=== PATIENT | female | born 1980 | race Caucasian/White ===

== ENCOUNTER 2016-10-09 15:33 | Inpatient (IN) | payer BC, OTHER ==
[2016-10-09] MEDS ORDERED: SODIUM CHLORIDE 1,000 ML IV STA ×2 (16:58→18:57)
[2016-10-09] MEDS ORDERED: morphine CARPU-JECT 2 MG/1 ML DISP.SYRIN IVPUSH ONE (17:05)
--- NOTE | 2016-10-09 17:21 | PDOC ---
History of Present Illness - General Chief Complaint: Pain Stated Complaint: PAIN Time Seen by Provider: 10/09/16 16:23 History Source: Patient Exam Limitations: Language Barrier - History of Present Illness Travel History: No Initial Comments: 10/09/16 16:16 36-year-old female presents to the ED with worsening right upper quadrant pain associated with intermittent nausea. Patient also noted yellowing in her eyes and dark urine today. Patient states last week was seen in [place] emergency department was told she had gallstones and to follow-up with her PCP when she returns home. Patient states been taking Motrin for discomfort but has had no relief in the past day. Patient denies fever, chills, abdominal distention, back pain, or change in bowel pattern. Timing/Duration: reports: getting worse Quality: reports: moderate, cramping, sharpness Abdominal Pain Onset Location: reports: RUQ Pain Radiation: reports: no radiation Activities at Onset: reports: none Aggravating Factors: improves with: None Alleviating Factors: improves with: None Past History - Past Medical History Allergies/Adverse Reactions: Allergies Allergy/AdvReac Type Severity Reaction Status Date / Time No Known Allergies Allergy Verified 10/09/16 15:37 Home Medications: Ambulatory Orders NK [No Known Home Medication] 10/09/16 Asthma: No Cancer: No Cardiac Disorders: No Diabetes: No GI Disorders: Yes (gallstones) HTN: No Seizures: No Thyroid Disease: No - Reproductive History Is Patient Now?: No - Immunization History Immunization Up to Date: No - Psycho/Social/Smoking Cessation Hx Suicidal Ideation: No Smoking History: Never smoked Have you smoked in the past 12 months: No Information on smoking cessation initiated: No Hx Alcohol Use: No Drug/Substance Use Hx: No Substance Use Type: None Hx Substance Use Treatment: No Patient Lives Alone: No Lives with/in: spouse/SO Abd/GI Specific PMHX - Complaint Specific PMHX Gall Bladder Disease: Yes ( gallstones) Review of Systems - Review of Systems Able to Perform ROS?: Yes Constitutional: No: Symptoms Reported HEENTM: No: Symptoms Reported Respiratory: No: Symptoms reported Cardiac (ROS): No: Symptoms Reported ABD/GI: Yes: Nausea, Abdominal cramping : No: Symptoms Reported Musculoskeletal: No: Symptoms Reported Integumentary: Yes: Change in Color Neurological: No: Symptoms reported Endocrine: No: Symptoms Reported Hematologic/Lymphatic: No: Symptoms Reported *Physical Exam - Vital Signs Last Vital Signs Temp Pulse Resp BP Pulse Ox 98.3 F 79 18 126/62 100 10/09/16 15:38 10/09/16 15:38 10/09/16 15:38 10/09/16 15:38 10/09/16 15:38 - Physical Exam General Appearance: Yes: Nourished, Appropriately Dressed. No: Apparent Distress HEENT: positive: EOMI, ERYN, Scleral Icterus (R), Scleral Icterus (L). negative : Pale Conjunctivae Neck: positive: Supple Respiratory/Chest: positive: Lungs Clear, Normal Breath Sounds. negative: Respiratory Distress, Accessory Muscle Use Cardiovascular: positive: Regular Rhythm, Regular Rate. negative: Murmur Gastrointestinal/Abdominal: positive: Soft, Increased Bowel Sounds, Guarding ( right upper quadrant), Tenderness (right upper quadrant positive [place]'s.). negative: Distended Musculoskeletal: negative: CVA Tenderness Extremity: positive: Normal Capillary Refill. negative: Pedal Edema Integumentary: positive: Warm, Jaundice ( mild generalized). negative: Swelling Neurologic: positive: Motor Strength 5/5 (ambulatory) ED Treatment Course - LABORATORY CBC & Chemistry Diagram: 10/09/16 17:30 10/09/16 17:30 - RADIOLOGY Radiology Studies Ordered: Category Date Time Status GALLBLADDER US [US] Stat Ultrasound 10/09/16 17:05 Ordered Medical Decision Making - Medical Decision Making 10/09/16 16:20 Patient with right upper quadrant pain and recent diagnosis of gallstones. Patient concerning for common bile duct obstruction versus pancreatitis versus cholecystitis. Patient ordered for preop labs including ultrasound IV access and pain control. 10/09/16 18:58 Laboratory Tests 10/09/16 10/09/16 13:20 17:30 WBC 6.7 Hgb 14.3 D Hct 42.1 D Neutrophils % 78.1 Monocytes % 6.2 D Urine Protein 1+ H Urine Glucose (UA) Negative Urine Ketones Negative Urine Blood 3+ H Urine Nitrite Negative Urine Urobilinogen 4.0 e.u/dl H Ur Leukocyte Esterase Negative Urine HCG, Qual Pending Ultrasound shows the liver measuring 17.8 cm with small cysts mainly in the left hepatic lobe measuring up to 1.4 cm in diameter. With a focal hypoechoic density measuring 2.3 cm in the right hepatic lobe. The gallbladder is adequately distended with a stone at the level of the neck measuring 1 cm and questionable sludge. There is also small stones the level of the fundus there is mild diffuse thickening in the gallbladder wall measuring 5 mm. Dilated, bowel duct measuring 8.5 mm in diameter. An MRCP is needed for further evaluation and an MRI of the liver to evaluate for mass lesion. Microblog was sent to hospitalist for admission. Ordered for nothing by mouth status and a second bag of IV fluid. Case discussed with Dr. Matthew and admitted to med/surg inpt. *DC/Admit/Observation/Transfer Diagnosis at time of Disposition: Scleral icterus, Gallstones with biliary obstruction, Liver mass, right lobe - Discharge Dispostion Admit: Yes
[2016-10-09 18:01] LABS: URINE APPEARANCE CLEAR; URINE COLOR AMBER; URINE GLUCOSE (UA) NEGATIVE (NEGATIVE); URINE KETONE NEGATIVE (NEGATIVE); URINE LEUK ESTERASE NEGATIVE (NEGATIVE); URINE NITRITE NEGATIVE (NEGATIVE); URINE UROBILINOGEN 4.0 E.U/dl E.U./dl (0.2-1.0)
[2016-10-09 18:01] LABS: BASOPHIL 0.6 % (0-2.0); MEAN CELL VOLUME 85.3 fl (80-96); MEAN PLT VOLUME 8.5 fl (7.5-11.1); NEUTROPHILS 78.1 % (42.8-82.8); PLATELET COUNT 157 K/MM3 (134-434); RDW 13.8 % (11.6-15.6); WHITE BLOOD COUNT 6.7 K/mm3 (4.0-10.0)
[2016-10-09 18:07] LABS: URINE BLOOD 3+ (NEGATIVE); URINE PROTEIN 1+ (NEGATIVE)
[2016-10-09 18:07] LABS: ALBUMIN 4.3 g/dl (3.4-5.0)
[2016-10-09 18:09] LABS: BILIRUBIN,TOTAL 10.7 mg/dL (0.2-1.0); TOT PROT 7.7 g/dl (6.4-8.2)
[2016-10-09] MEDS ORDERED: morphine CARPU-JECT 4 MG/1 ML DISP.SYRIN ONE (18:40)
[2016-10-09 19:02] LABS: CALCIUM 9.3 mg/dL (8.5-10.1); CREATININE 1.1 mg/dL (0.55-1.02)
[2016-10-09 19:02] LABS: URINE MUCUS MODERATE; URINE RBC 168 /hpf (0-3); URINE WBC 5 /hpf (3-5)
--- NOTE | 2016-10-09 19:36 | PN ---
<ImerRogrebernadine - Last Filed: 10/09/16 19:36> Teaching Attending Note Name of Resident: Teresa Shearer ATTENDING PHYSICIAN STATEMENT I saw and evaluated the patient. I reviewed the resident's note and discussed the case with the resident. I agree with the resident's findings and plan as documented. SUBJECTIVE: OBJECTIVE: ASSESSMENT AND PLAN: <Jojo Auguste - Last Filed: 10/09/16 21:06> Teaching Attending Note ATTENDING PHYSICIAN STATEMENT I saw and evaluated the patient. I reviewed the resident's note and discussed the case with the resident. I agree with the resident's findings and plan as documented. SUBJECTIVE: The patient is a 36 yo F with a PMHx of gallstones, who presents with RUQ pain and nausea. OBJECTIVE: Physical Last Vital Signs Temp Pulse Resp BP Pulse Ox 98.3 F 69 16 107/68 98 10/09/16 18:45 10/09/16 18:45 10/09/16 18:45 10/09/16 18:45 10/09/16 18:45 GEN: NAD HEENT: NCAT, PERRL. + Sclera icteric CARD: RRR, S1 S2 RESP: CTAB ABD: + RUQ tenderness on palpation, BWS x4 EXT: - CCE CBCD WBC 6.7 K/mm3 (4.0-10.0) 10/09/16 17:30 RBC 4.94 M/mm3 (3.60-5.2) D 10/09/16 17:30 Hgb 14.3 GM/dL (10.7-15.3) D 10/09/16 17:30 Hct 42.1 % (32.4-45.2) D 10/09/16 17:30 MCV 85.3 fl (80-96) 10/09/16 17:30 MCHC 34.0 g/dl (32.0-36.0) 10/09/16 17:30 RDW 13.8 % (11.6-15.6) D 10/09/16 17:30 Plt Count 157 K/MM3 (134-434) D 10/09/16 17:30 MPV 8.5 fl (7.5-11.1) 10/09/16 17:30 CMP Sodium 140 mmol/L (136-145) 10/09/16 17:30 Potassium 4.2 mmol/L (3.5-5.1) 10/09/16 17:30 Chloride 102 mmol/L (98-107) 10/09/16 17:30 Carbon Dioxide 26 mmol/L (21-32) D 10/09/16 17:30 Anion Gap 12 (8-16) 10/09/16 17:30 BUN 8 mg/dL (7-18) 10/09/16 17:30 Creatinine 1.1 mg/dL (0.55-1.02) H D 10/09/16 17:30 Creat Clearance w eGFR 55.89 (>60) 10/09/16 17:30 Calcium 9.3 mg/dL (8.5-10.1) 10/09/16 17:30 Total Bilirubin 10.7 mg/dL (0.2-1.0) H 10/09/16 17:30 AST 348 U/L (15-37) H 10/09/16 17:30 ALT 465 U/L (12-78) H 10/09/16 17:30 Alkaline Phosphatase 183 U/L (45-117) H 10/09/16 17:30 Total Protein 7.7 g/dl (6.4-8.2) 10/09/16 17:30 Albumin 4.3 g/dl (3.4-5.0) 10/09/16 17:30 Imaging: US Abdomen- Limited Impression: Multiple small gallstones mainly at the level of the fundus with suggestion of a sludge, 1 cm stone at the level of the neck and mild diffuse thickening of the gallbladder wall. No pericholecystic free fluid is seen. Cannot rule out acute cholecystitis. Dilated common bile duct measuring 8.5 mm for which further evaluation with MRCP is needed. Borderline hepatomegaly with heterogeneous echotexture, a few small cysts measuring up to 1.2 cm and a 2.3 cm focal hypoechoic density in the right hepatic lobe for which further evaluation with contrast enhanced MRI of the liver is recommended to evaluate for a mass lesion. ASSESSMENT AND PLAN: The patient is a 36 yo F with a PMHx of gallstones who present with RUQ abdominal pain who was found to have acute cholecystitis and transaminitis. 1.) Acute colli with possible CBD stone - MRCP in the AM - GI consult - Surgery consult - NPO - IVF - Zosyn-- breast feeding compatible - Coags type and screen 2.) Acute Renal Failure - IVF - If no improvement check electrolytes 3.) Hyperbilirubinemia -Check direct bilirubin -Trend 4.) Liver cyst - Contrast enhanced MRI when able 5.) DVT PPX - Low risk - Ambulate Admit to Med Surg Documentation prepared by Jojo Auguste, acting as family practice medical doctor for Heike Willams MD
[2016-10-09] MEDS ORDERED: PIPERACILLIN/TAZOB 3.375 GM 50 ML IVPB ONE (20:38)
[2016-10-09] MEDS ORDERED: SODIUM CHLORIDE 1,000 ML IV SCH (20:45)
[2016-10-09 20:54] VITALS: BMI 30.2
--- NOTE | 2016-10-09 20:58 | HP ---
CHIEF COMPLAINT: abdominal pain PCP: Not on staff HISTORY OF PRESENT ILLNESS: Patient is a 36 year old female with no PMHx who presents complaining of constant sharp right upper quadrant abdominal pain that initially started four days ago when she was on vacation in [place], [place] and went to a hospital there. She was told she had gallstones and was discharged with pain medications. Patient left her trip early so she can be evaluated here. The pain radiates to the back and is worse when she takes a deep breath in with a severity of 10/10 associated with nonbilious non bloody vomiting. Patient also reports having yellow eyes and dark urine, which began around the same time as the abdominal pain. Otherwise, patient denies fever, chills, diarrhea, chest pain, shortness of breath, palpitations, dizziness, headaches. ER course was notable for: (1) U/S (2) Morphine 4mg IV (3) 2L IV Normal Saline Recent Travel: [place], [place] three days ago PAST MEDICAL HISTORY: Denies PAST SURGICAL HISTORY: Denies Social History: Smoking: Denies Alcohol: Denies Drugs: Denies Family History: Father- Nephrolithiasis Allergies: No Known Allergies Allergy (Verified 10/09/16 15:37) HOME MEDICATIONS: Medication Instructions Recorded NK [No Known Home Medication] 10/09/16 REVIEW OF SYSTEMS CONSTITUTIONAL: Absent: fever, chills, diaphoresis, generalized weakness, malaise, loss of appetite, weight change HEENT: Absent: rhinorrhea, nasal congestion, throat pain, throat swelling, difficulty swallowing, mouth swelling, ear pain, eye pain, visual changes CARDIOVASCULAR: Absent: chest pain, syncope, palpitations, irregular heart rate, lightheadedness , peripheral edema RESPIRATORY: Absent: cough, shortness of breath, dyspnea with exertion, orthopnea, wheezing, stridor, hemoptysis GASTROINTESTINAL: abdominal pain, abdominal distension, nausea, vomiting Absent: Diarrhea, constipation, melena, hematochezia GENITOURINARY: Absent: dysuria, frequency, urgency, hesitancy, hematuria, flank pain, genital pain MUSCULOSKELETAL: Absent: myalgia, arthralgia, joint swelling, back pain, neck pain SKIN: Absent: rash, itching, pallor HEMATOLOGIC/IMMUNOLOGIC: Absent: easy bleeding, easy bruising, lymphadenopathy, frequent infections ENDOCRINE: Absent: unexplained weight gain, unexplained weight loss, heat intolerance, cold intolerance NEUROLOGIC: Absent: headache, focal weakness or paresthesias, dizziness, unsteady gait, seizure, mental status changes, bladder or bowel incontinence PSYCHIATRIC: Absent: anxiety, depression, suicidal or homicidal ideation, hallucinations. Vital Signs - 24 hr 10/09/16 10/09/16 10/09/16 15:38 18:45 20:43 Temperature 98.3 F 98.3 F 98.7 F Pulse Rate 79 73 Pulse Rate [ 69 Left Radial] Respiratory 18 16 18 Rate Blood Pressure 126/62 127/69 Blood Pressure 107/68 [Right Arm] O2 Sat by Pulse 100 98 Oximetry (%) PHYSICAL EXAMINATION GENERAL: Awake, alert, and fully oriented, in no acute distress. HEENT:PERRL, EOMI, Scleral Icterus, Moist mucous membranes. NECK: Normal range of motion, supple without lymphadenopathy, JVD, or masses. LUNGS: Breath sounds equal, clear to auscultation bilaterally. No wheezes, and no crackles. No accessory muscle use. HEART: Regular rate and rhythm, normal S1 and S2 without murmur, rub or gallop. ABDOMEN: Soft, Tenderness upon palpation of right upper quadrant with (+) guarding, no rebound, no masses. Hyperactive bowel sounds. No hepatomegaly or splenomegaly. EXTREMITIES: No calf tenderness. No peripheral edema. NEUROLOGICAL: No focal deficits. Normal speech. PSYCHIATRIC: Cooperative. Good eye contact. Appropriate mood and affect. SKIN: Warm, dry, normal turgor, no rashes or lesions noted. Laboratory Results - last 24 hr 10/09/16 10/09/16 10/09/16 13:20 17:30 17:30 WBC 6.7 RBC 4.94 D Hgb 14.3 D Hct 42.1 D MCV 85.3 MCHC 34.0 RDW 13.8 D Plt Count 157 D MPV 8.5 Neutrophils % 78.1 Lymphocytes % 14.1 Monocytes % 6.2 D Eosinophils % 1.0 Basophils % 0.6 Sodium 140 Potassium 4.2 Chloride 102 Carbon Dioxide 26 D Anion Gap 12 BUN 8 Creatinine 1.1 H D Creat Clearance w eGFR 55.89 Random Glucose 93 Calcium 9.3 Total Bilirubin 10.7 H AST 348 H ALT 465 H Alkaline Phosphatase 183 H Total Protein 7.7 Albumin 4.3 Total Amylase 61 Lipase 183 Urine Color [place] Urine Appearance Clear Urine pH 5.0 Ur Specific [place] 1.027 Urine Protein 1+ H Urine Glucose (UA) Negative Urine Ketones Negative Urine Blood 3+ H Urine Nitrite Negative Urine Bilirubin 4.0 Urine Urobilinogen 4.0 e.u/dl H Ur Leukocyte Esterase Negative Urine RBC 168 Urine WBC 5 Ur Epithelial Cells Rare Urine Mucus Moderate Urine HCG, Qual Negative US Abdomen- Limited: Multiple small gallstones mainly at the level of the fundus with suggestion of a sludge, 1 cm stone at the level of the neck and mild diffuse thickening of the gallbladder wall. No pericholecystic free fluid is seen. Cannot rule out acute cholecystitis. Dilated common bile duct measuring 8.5 mm for which further evaluation with MRCP is needed. Borderline hepatomegaly with heterogeneous echotexture, a few small cysts measuring up to 1.2 cm and a 2.3 cm focal hypoechoic density in the right hepatic lobe for which further evaluation with contrast enhanced MRI of the liver is recommended to evaluate for a mass lesion. ASSESSMENT/PLAN: Patient is a 36 year old male female with no PMHx who presented for RUQ abdominal pain associated with vomiting and jaundice. Patient was found to have acute cholecystitis and transaminitis. Patient admitted to med//surg for further monitoring and management. Acute Cholecystitis with CBD stone -GI Consult placed -Surgery consult placed -MRCP ordered for the morning -IV Normal Saline @100mls/hr -Zosyn 3.375mg IV -Coagulations ordered -Type and Screen -Morphine 2mg IVP PRN for pain -NPO Transaminitis -Likely from CBD obstruction -GI Consult ordered -Continue to trend LFT's Hyperbilirubinemia -Direct Bilirubin ordered -Continue to trend bilirubin Acute Kidney Injury -Likely volume depletion from vomiting -IV Normal Saline @100mls/hr -Continu to trend BMP. If no improvement, check electrolytes Liver Cyst -Contrast enhanced MRI recommended when possible F/E/N -IV NS @100mls/hr -Electrolytes wnl -NPO Prophylaxis -SCD's for DVT -No GI needed Disposition -Full code -Admitted to Med/Surg. Awaiting surgery evaluation. Visit type - Emergency Visit Emergency Visit: Yes ED Registration Date: 10/09/16 Care time: The patient presented to the Emergency Department on the above date and was hospitalized for further evaluation of their emergent condition. - New Patient This patient is new to me today: Yes Date on this admission: 10/09/16 - Critical Care Critical Care patient: No
--- NOTE | 2016-10-10 00:09 | CONSULT ---
Consult Consult Specialty:: surgery - History of Present Illness Chief Complaint: ruq pain History of Present Illness: pt with RUQ pain since saturday (4-5 days). Initially was diagnosed with gallstones/gallbladder problems in [place] but wanted to be treated at home. Pain is on off. Comes to ER and U/S shows stones, wall thickening and CBD 8.5mm. Her LFTs are increased and Tbili is 10. she has never had jaundice before Saturday and never had these problems. - History Source History Provided By: Patient - Past Medical History ...: No - Past Surgical History Past Surgical History: Yes: None, - Alcohol/Substance Use Hx Alcohol Use: No History of Substance Use: reports: None - Smoking History Smoking history: Never smoked Have you smoked in the past 12 months: No - Social History History of Recent Travel: No Home Medications - Allergies Allergies/Adverse Reactions: Allergies Allergy/AdvReac Type Severity Reaction Status Date / Time No Known Allergies Allergy Verified 10/09/16 15:37 - Home Medications Home Medications: Ambulatory Orders NK [No Known Home Medication] 10/09/16 Family Disease History - Family Disease History Family History: Denies Review of Systems - Review of Systems Constitutional: denies: Chills, Fever Eyes: denies: Blind Spots, Double Vision HENT: denies: Difficult Swallowing, Ear Discharge Neck: denies: Decreased ROM, Lumps Cardiovascular: denies: Chest Pain, Edema Respiratory: denies: Cough, Exercise Intolerance Gastrointestinal: reports: Abdominal Pain. denies: Bloating Genitourinary: denies: Burning, Discharge Musculoskeletal: denies: Crepitus, Decreased ROM Integumentary: reports: Change in Color. denies: Bruising Neurological: denies: Change in LOC, Change in Speech Endocrine: denies: Excessive Sweating, Flushing Hematology/Lymphatic: denies: Easily Bruised, Excessive Bleeding Psychiatric: denies: Altered Sleep Pattern, Anxiety Physical Exam Vital Signs: Vital Signs Temperature 98.7 F 10/09/16 20:43 Pulse Rate 73 10/09/16 20:43 Respiratory Rate 18 10/09/16 20:43 Blood Pressure 127/69 10/09/16 20:43 O2 Sat by Pulse Oximetry (%) 98 10/09/16 20:55 Constitutional: Yes: No Distress, Calm Eyes: Yes: EOM Intact, Other (sclericterus) HENT: Yes: Atraumatic, Normocephalic Neck: Yes: Supple, Trachea Midline Cardiovascular: Yes: Regular Rate and Rhythm Respiratory: Yes: Regular, CTA Bilaterally Gastrointestinal: Yes: Soft, Tenderness (min mild RUQ). No: Distention ...Rectal Exam: Yes: Deferred Renal/: No: CVA Tenderness - Left, CVA Tenderness - Right Breast(s): No: Gynecomastia, Mass Musculoskeletal: No: Joint Stiffness, Joint Swelling Extremities: No: Calf Tenderness, Erythema Integumentary: No: Erythema, Rash Neurological: Yes: Alert, Oriented Psychiatric: Yes: Alert, Oriented Imaging - Results Ultrasound: Report Reviewed Problem List - Problems (1) Gallstones with biliary obstruction Assessment/Plan: needs MRCP to r/o choledocholithasis if + will need ERCP if - will proceed to lap heydi cont npo for now MRCP will hopefully better define liver masses. given pain and acuity of problem I strongly suspect this is gallstone disease and NOT neoplastic. Code(s): K80.21 - CALCULUS OF GALLBLADDER W/O CHOLECYSTITIS WITH OBSTRUCTION (2) Scleral icterus Code(s): R17 - UNSPECIFIED JAUNDICE
--- NOTE | 2016-10-10 00:46 | CON.GI ---
Consult Consult Specialty:: Gastroenterology Referred by:: Dr Mohamud Reason for Consultation:: Jaundice - History of Present Illness Chief Complaint: RUQ colicky pain History of Present Illness: 36W 3 months developed colicky RUQ pain with radiation to the right scapula on 10/07/16. She was evaluated in an ER in [place] and told of gallstones. The pain has persisted and been getting worse. No vomiting or fever. No previous h/o similar pain. Her urine has been justina colored. She denies any h/o liver disease. No IVDA or alcohol abuse. Vaccinated for HBV. Has been tattooed. No FH of liver disease. 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 Place of : [facility] History of Recent Travel: No Home Medications - Allergies Allergies/Adverse Reactions: Allergies Allergy/AdvReac Type Severity Reaction Status Date / Time No Known Allergies Allergy Verified 10/09/16 15:37 - Home Medications Home Medications: Ambulatory Orders NK [No Known Home Medication] 10/09/16 Family Disease History - Family Disease History Family Disease History: Diabetes: Father Review of Systems - Review of Systems Constitutional: reports: No Symptoms Eyes: reports: No Symptoms HENT: reports: No Symptoms Neck: reports: No Symptoms Cardiovascular: reports: No Symptoms Respiratory: reports: No Symptoms Gastrointestinal: reports: Abdominal Pain Genitourinary: reports: No Symptoms Breasts: reports: No Symptoms Reported Musculoskeletal: reports: No Symptoms Integumentary: reports: No Symptoms Neurological: reports: No Symptoms Physical Exam-GI Vital Signs: Vital Signs Temperature 98.7 F 10/09/16 20:43 Pulse Rate 73 10/09/16 20:43 Respiratory Rate 18 10/09/16 20:43 Blood Pressure 127/69 10/09/16 20:43 O2 Sat by Pulse Oximetry (%) 98 10/09/16 20:55 CBC, BMP 10/09/16 17:30 10/09/16 17:30 CBC,CMP WBC 6.7 K/mm3 (4.0-10.0) 10/09/16 17:30 RBC 4.94 M/mm3 (3.60-5.2) D 10/09/16 17:30 Hgb 14.3 GM/dL (10.7-15.3) D 10/09/16 17:30 Hct 42.1 % (32.4-45.2) D 10/09/16 17:30 MCV 85.3 fl (80-96) 10/09/16 17:30 MCHC 34.0 g/dl (32.0-36.0) 10/09/16 17:30 RDW 13.8 % (11.6-15.6) D 10/09/16 17:30 Plt Count 157 K/MM3 (134-434) D 10/09/16 17:30 MPV 8.5 fl (7.5-11.1) 10/09/16 17:30 Neutrophils % 78.1 % (42.8-82.8) 10/09/16 17:30 Lymphocytes % 14.1 % (8-40) 10/09/16 17:30 Monocytes % 6.2 % (3.8-10.2) D 10/09/16 17:30 Eosinophils % 1.0 % (0-4.5) 10/09/16 17:30 Basophils % 0.6 % (0-2.0) 10/09/16 17:30 Sodium 140 mmol/L (136-145) 10/09/16 17:30 Potassium 4.2 mmol/L (3.5-5.1) 10/09/16 17:30 Chloride 102 mmol/L (98-107) 10/09/16 17:30 Carbon Dioxide 26 mmol/L (21-32) D 10/09/16 17:30 Anion Gap 12 (8-16) 10/09/16 17:30 BUN 8 mg/dL (7-18) 10/09/16 17:30 Creatinine 1.1 mg/dL (0.55-1.02) H D 10/09/16 17:30 Creat Clearance w eGFR 55.89 (>60) 10/09/16 17:30 Random Glucose 93 mg/dL (74-106) 10/09/16 17:30 Calcium 9.3 mg/dL (8.5-10.1) 10/09/16 17:30 Total Bilirubin 10.7 mg/dL (0.2-1.0) H 10/09/16 17:30 AST 348 U/L (15-37) H 10/09/16 17:30 ALT 465 U/L (12-78) H 10/09/16 17:30 Alkaline Phosphatase 183 U/L (45-117) H 10/09/16 17:30 Total Protein 7.7 g/dl (6.4-8.2) 10/09/16 17:30 Albumin 4.3 g/dl (3.4-5.0) 10/09/16 17:30 Total Amylase 61 U/L (25-115) 10/09/16 17:30 Lipase 183 U/L (73-393) 10/09/16 17:30 Current Medications Generic Name Dose Route Start Last Admin Trade Name Freq PRN Reason Stop Dose Admin Sodium Chloride 1,000 mls @ 100 mls/hr 10/09/16 20:45 10/09/16 21:03 Normal Saline - IV Not Given ASDIR ASIYA Ampicillin Sodium/Sulbactam 100 mls @ 200 mls/hr 10/10/16 02:00 Sodium 1.5 gm/ Sodium Chloride IVPB Q8H-IV ASIYA Metronidazole 100 mls @ 100 mls/hr 10/10/16 02:00 Flagyl 500mg Premixed Ivpb - IVPB Q8H-IV ASIYA Morphine Sulfate 2 mg 10/09/16 20:35 Morphine Injection - IVPUSH Q4H PRN MODERATE PAIN Constitutional: Yes: Calm Eyes: Yes: Sclera Icterus HENT: Yes: Normocephalic Neck: Yes: Supple Cardiovascular: Yes: Regular Rate and Rhythm Respiratory: Yes: CTA Bilaterally Gastrointestinal Inspection: Yes: Scars (healed Pfannensteil incisions) ...Auscultate: Yes: Hypoactive Bowel Sounds ...Palpate: Yes: Soft, Tenderness (RUQ but no peritoneal signs) ...Rectal Exam: Yes: Deferred Imaging - Results Ultrasound: Image Reviewed (dilated CBD at 8.5mm, gallstones, 2.3cm hypoechoic right lobe density) Problem List - Problems (1) Abdominal pain Code(s): R10.9 - UNSPECIFIED ABDOMINAL PAIN Assessment/Plan I have explained to Rachel that her clinical picture is best explained by stones occluding her common bile duct. A pancreatic, ampullary or cholagiocarcinoma appear unlikely. I have explained that she will likely need an ERCP with sphincterotomy to extract the stones or to pass a stent to relieve the obstruction. I also explained that she will need a subsequent cholecystectomy. I have discussed the potential risks of ERCP including hemorrhage, perforation and multiple organ failure associated with ERCP induced pancreatitis. She has granted an informed consent. I will obtain blood cultures and start antibiotics to protect against ascending cholangitis. I have ordered an MRCP but if LFTs fail to improve I may need to proceed with an ERCP before MRCP can be done. Her liver mass may be a fatty liver defect but I have ordered MRI of the liver with contrast to exclude a neoplasm, hemangioma, adenoma and focal nodular hyperplasia. I have also ordered screening for chronic liver disease although I doubt this.
[2016-10-10] MEDS ORDERED: LACTATED RINGERS SOLUTION 1,000 ML IV SCH ×3 (01:00→21:30)
[2016-10-10] MEDS: morphine CARPU-JECT 2 MG/1 ML DISP.SYRIN IVPUSH PRN ×3 (01:04→09:26)
[2016-10-10] MEDS: AMPICILLIN NA/SULBACTAM NA 100 ML IVPB SCH ×3 (01:05→17:20)
[2016-10-10] MEDS: METRONIDAZOLE 500 MG PREMIXED 100 ML IVPB SCH ×4 (02:53→17:21)
[2016-10-10 08:49] LABS: INR 0.96 (0.82-1.09); PROTHROMBIN TIME (PATIENT) 10.6 SEC (9.98-11.88)
[2016-10-10 08:53] LABS: ACTIVATED PTT 29.3 SECONDS (26.9-34.4)
[2016-10-10 09:15] LABS: C-REACTIVE PROTEIN 4.3 MG/DL (0.00-0.3)
[2016-10-10 09:28] LABS: BILIRUBIN,DIRECT 7.3 mg/dL (0.0-0.2)
[2016-10-10 09:30] LABS: ALBUMIN 3.3 g/dl (3.4-5.0); ALK PHOS 162 U/L (45-117); ANION GAP 11 (8-16); BILIRUBIN,TOTAL 9.3 mg/dL (0.2-1.0); CALCIUM 8.5 mg/dL (8.5-10.1); CO2 25 mmol/L (21-32); CREATININE 0.9 mg/dL (0.55-1.02); GLUCOSE,RANDOM 71 mg/dL (74-106); SGOT/AST 200 U/L (15-37); SGPT/ALT 338 U/L (12-78); TOT PROT 6.5 g/dl (6.4-8.2)
[2016-10-10 09:56] LABS: FERRITIN 173.636 ng/ml (6.9-282.5)
[2016-10-10] MEDS ORDERED: INDOMETHACIN 50 MG RECTAL SUPPOSITORY PR ONE ×2 (10:38→10:43)
[2016-10-10] MEDS ORDERED: SUCCINYLCHOLINE CHLORIDE 200 MG/10 ML VIAL ONE (11:57)
[2016-10-10] MEDS ORDERED: PROPOFOL 20 ML ONE (11:57)
[2016-10-10] MEDS ORDERED: ROCURONIUM BROMIDE 50 MG/5 ML VIAL ONE (11:57)
--- NOTE | 2016-10-10 13:26 | EKG ---
Test Reason : Blood Pressure : / mmHG Vent. Rate : 069 BPM Atrial Rate : 069 BPM P-R Int : 130 ms QRS Dur : 076 ms QT Int : 404 ms P-R-T Axes : -21 064 026 degrees QTc Int : 432 ms NORMAL SINUS RHYTHM NORMAL ECG NO PREVIOUS ECGS AVAILABLE Confirmed by ABHIJIT WHITNEY, HAIDER ([id number]) on 10/10/2016 1:26:06 PM Referred By: Confirmed By:HAIDER LACEY MD
--- NOTE | 2016-10-10 13:28 | PN ---
Progress Note (short form) - Note Progress Note: GI Procedure Note: Please see ERCP report. A large distal CBD stone was removed. If pancreatitis does not ensue then can proceed with lap choly. Discussed with patient and and texted with Dr Patterson. Problem List - Problems (1) Abdominal pain Code(s): R10.9 - UNSPECIFIED ABDOMINAL PAIN
--- NOTE | 2016-10-10 13:28 | PN ---
Addendum entered and electronically signed by Michelle Cuellar RES 10/10/16 14: 41: Patient s/p ERCP. large CBD stone removed. Will proceed with surgery Original Note: <Michelle Cuellar - Last Filed: 10/10/16 14:40> Physical Exam: SUBJECTIVE: Patient seen and examined patient resting in bed NAD. Afebrile and hemodynamically stable. no acute events overnight. states that she feels a little better still has RUQ pain and constipation but pain is well controlled with morphine. Denies n/v, diarrhea, f/ c, h/a or dizziness. Labs improved, will proceed with MRCP this morning. OBJECTIVE: Vital Signs Period Temp Pulse Resp BP Sys/Dominguez Pulse Ox Last 24 Hr 98.1 F-98.7 F 73-89 18-20 113-132/66-81 97-99 GENERAL: The patient is awake, alert, and fully oriented, in no acute distress. HEAD: Normal with no signs of trauma. EYES: PERRL, extraocular movements intact, sclera anicteric, conjunctiva clear. ENT: moist mucous membranes. NECK: supple. LUNGS: Breath sounds equal, clear to auscultation bilaterally HEART: Regular rate and rhythm, S1, S2 ABDOMEN: mildly distended, soft, moderately tender diffusely, especially RUQ + murohy, reduced bowel sounds, no guarding, no mass EXTREMITIES: 2+ pulses, warm, well-perfused, no edema. NEUROLOGICAL: Cranial nerves II through XII grossly intact. Normal speech, gait not observed. PSYCH: Normal mood, normal affect. SKIN: Warm, dry. +sublingual jaundice Laboratory Results - last 24 hr 10/10/16 10/10/16 10/10/16 06:15 06:15 06:15 INR 0.96 PTT (Actin FS) 29.3 Sodium 142 Potassium 3.7 Chloride 106 Carbon Dioxide 25 Anion Gap 11 BUN 8 Creatinine 0.9 Creat Clearance w eGFR > 60 Random Glucose 71 L D Calcium 8.5 Ferritin Total Bilirubin 9.3 H Direct Bilirubin AST 200 H D ALT 338 H D Alkaline Phosphatase 162 H LD Total 232 C-Reactive Protein 4.3 H Total Protein 6.5 Albumin 3.3 L D Total Amylase 58 Lipase 160 Blood Type Antibody Screen 10/10/16 10/10/16 06:15 06:45 INR PTT (Actin FS) Sodium Potassium Chloride Carbon Dioxide Anion Gap BUN Creatinine Creat Clearance w eGFR Random Glucose Calcium Ferritin 173.636 Total Bilirubin Direct Bilirubin 7.3 H AST ALT Alkaline Phosphatase LD Total C-Reactive Protein Total Protein Albumin Total Amylase Lipase Blood Type B POSITIVE Antibody Screen Negative Active Medications Generic Name Dose Route Start Last Admin Trade Name Freq PRN Reason Stop Dose Admin Ampicillin Sodium/Sulbactam Sodium 100 mls @ 200 mls/hr 10/10/16 02:00 09:30 Unasyn 1.5 Gm (Pre-Docked) IVPB 200 mls/hr Q8H-IV ASIYA Administration Metronidazole 100 mls @ 100 mls/hr 10/10/16 02:00 10/10/16 02:53 Flagyl 500mg Premixed Ivpb - IVPB 100 mls/hr Q8H-IV ASIYA Administration Lactated Ringer's 1,000 mls @ 125 mls/hr 10/10/16 01:00 10/10/16 02:52 Lactated Ringers Solution IV 125 mls/hr ASDIR ASIYA Administration Morphine Sulfate 2 mg 10/09/16 20:35 10/10/16 09:26 Morphine Injection - IVPUSH 2 mg Q4H PRN Administration MODERATE PAIN ASSESSMENT/PLAN: Patient is a 36 year old male female with no PMHx who presented for RUQ abdominal pain associated with vomiting and jaundice. Patient was found to have acute cholecystitis and transaminitis. Patient admitted to med//surg for further monitoring and management. Acute calcalous Cholecystitis -CBD 8.5 mm -ast, alt, t bili trending down -MRCP this AM -posiible ERCP and gemma to follow -GI and Gemma consult appreciated -IV Normal Saline @100mls/hr -Unasyn and flagyul -Morphine 2mg IVP PRN for pain -NPO Transaminitis -due to cholecystitis/choledochlithiasis -enzymes trending down AST/ALT 200/338 -AM CMP Hyperbilirubinemia -t bili, d bili : 9.3, 7.3 -trend bilirubin Acute Kidney Injury -secondary to volume depletion -IV Normal Saline @100mls/hr -resolved Cystic hepatic lesion -Gi consult: likely fatty defect, MRI ordered FEN NS @100mls/hr lytes stable DVT GI PPX: SCD NPO Dispo: Med/Surg Problem List - Problems (1) Abdominal pain Code(s): R10.9 - UNSPECIFIED ABDOMINAL PAIN (2) Gallstones with biliary obstruction Code(s): K80.21 - CALCULUS OF GALLBLADDER W/O CHOLECYSTITIS WITH OBSTRUCTION (3) Liver mass, right lobe Code(s): R16.0 - HEPATOMEGALY, NOT ELSEWHERE CLASSIFIED (4) Scleral icterus Code(s): R17 - UNSPECIFIED JAUNDICE Visit type - Emergency Visit Emergency Visit: Yes ED Registration Date: 10/09/16 Care time: The patient presented to the Emergency Department on the above date and was hospitalized for further evaluation of their emergent condition. - New Patient This patient is new to me today: Yes Date on this admission: 10/10/16 - Critical Care Critical Care patient: No - Discharge Referral Referred to [facility] Med P.C[facility] No <Alirio Ibarra - Last Filed: 10/10/16 16:27> Physical Exam: ATTENDING PHYSICIAN STATEMENT I saw and evaluated the patient. I reviewed the resident's note and discussed the case with the resident. I agree with the resident's findings and plan as documented. SUBJECTIVE: seen and evaluated at the bedside OBJECTIVE: resting comfortably; mild abd tenderness on exam ASSESSMENT AND PLAN: 36 year old woman admitted for acute choledocalithiasis with transaminitis and hyperbilirubinemia -GI consult greatly appreciated -s/p ERCP with removal of largeCBD stone -follow up lipase in AM -for lap heydi if no post ERCP pancreatitis
[2016-10-11] MEDS: METRONIDAZOLE 500 MG PREMIXED 100 ML IVPB SCH ×3 (02:09→17:02)
[2016-10-11] MEDS: AMPICILLIN NA/SULBACTAM NA 100 ML IVPB SCH ×3 (02:09→17:01)
[2016-10-11] MEDS ORDERED: LACTATED RINGERS SOLUTION 1,000 ML IV SCH ×3 (06:00→18:00)
[2016-10-11 06:06] LABS: HEP B SURFACE AB Reactive (.)
--- NOTE | 2016-10-11 06:13 | CONSULT ---
Consult - text type - Consultation Consultation Note: plan for lap heydi on 10/11 at 1pm if no evidence of post ercp pancreatitis. please keep npo. will discuss with patient later today.
[2016-10-11] MEDS ORDERED: D5-1/2NS+20 MEQ KCL - 1,000 ML IV SCH ×2 (06:15→15:49)
[2016-10-11 07:58] LABS: BASOPHIL 0.6 % (0-2.0); EOSINOPHIL 1.9 % (0-4.5); MCH 29.3 pg (25.7-33.7); MCHC 34.5 g/dl (32.0-36.0); MEAN CELL VOLUME 84.8 fl (80-96); MEAN PLT VOLUME 8.4 fl (7.5-11.1); NEUTROPHILS 71.2 % (42.8-82.8); PLATELET COUNT 93 K/MM3 (134-434); RDW 13.7 % (11.6-15.6); WHITE BLOOD COUNT 3.3 K/mm3 (4.0-10.0)
[2016-10-11 08:06] LABS: CA 19-9 18447 U/mL (0-35)
[2016-10-11 08:35] LABS: ALBUMIN 2.7 g/dl (3.4-5.0); CREATININE 0.7 mg/dL (0.55-1.02); MAGNESIUM 1.7 mg/dL (1.8-2.4); SGOT/AST 92 U/L (15-37); SGPT/ALT 214 U/L (12-78)
[2016-10-11 08:42] LABS: ALK PHOS 143 U/L (45-117); AMYLASE 61 U/L (25-115); ANION GAP 10 (8-16); BILIRUBIN,DIRECT 2.4 mg/dL (0.0-0.2); BILIRUBIN,TOTAL 3.2 mg/dL (0.2-1.0); C-REACTIVE PROTEIN 2.6 MG/DL (0.00-0.3); CALCIUM 8.3 mg/dL (8.5-10.1); CO2 26 mmol/L (21-32); GLUCOSE,RANDOM 82 mg/dL (74-106); PHOSPHOROUS 2.4 mg/dL (2.5-4.9); TOT PROT 5.5 g/dl (6.4-8.2)
[2016-10-11] MEDS ORDERED: MAGNESIUM SULF 50% (8.12 MEQ/2 ML-1 GM VIAL) IVPB ONE (09:30)
--- NOTE | 2016-10-11 10:39 | PN ---
<Michelle Cuellar - Last Filed: 10/11/16 11:29> Physical Exam: SUBJECTIVE: Patient seen and examined patient resting in bed NAD. Afebrile and hemodynamically stable. no acute events overnight. s/p MRCP, ERCP yesterday with removal of large CBD stone. Feels well, abd pain resolved. No BM but passing gas. labs negative for pancreatitits. Lap heydi today at 1 pm. Denies n/v, diarrhea, f/c, h/a or dizziness. Labs improved, will proceed with MRCP this morning. OBJECTIVE: Vital Signs Period Temp Pulse Resp BP Sys/Dominguez Pulse Ox Last 24 Hr 98.1 F-98.6 F 65-99 16-22 106-128/50-85 97-100 GENERAL: The patient is awake, alert, and fully oriented, in no acute distress. HEAD: Normal with no signs of trauma. EYES: PERRL, extraocular movements intact, sclera anicteric, conjunctiva clear. ENT: moist mucous membranes. NECK: supple. LUNGS: Breath sounds equal, clear to auscultation bilaterally HEART: Regular rate and rhythm, S1, S2 ABDOMEN: nondistended, soft, nontender, decreased bowel sounds. EXTREMITIES: 2+ pulses, warm, well-perfused, no edema. NEUROLOGICAL: Cranial nerves II through XII grossly intact. Normal speech, gait not observed. PSYCH: Normal mood, normal affect. SKIN: Warm, dry. +sublingual jaundice Laboratory Results - last 24 hr 10/10/16 10/11/16 10/11/16 06:15 06:20 06:20 WBC 3.3 L D RBC 3.65 D Hgb 10.7 D Hct 31.0 L D MCV 84.8 MCHC 34.5 RDW 13.7 Plt Count 93 L D MPV 8.4 Neutrophils % 71.2 Lymphocytes % 20.4 D Monocytes % 5.9 Eosinophils % 1.9 D Basophils % 0.6 Sodium 142 Potassium 3.7 Chloride 106 Carbon Dioxide 26 Anion Gap 10 BUN 5 L D Creatinine 0.7 D Creat Clearance w eGFR > 60 Random Glucose 82 Calcium 8.3 L Phosphorus 2.4 L Magnesium 1.7 L Total Bilirubin 3.2 H D Direct Bilirubin 2.4 H D AST 92 H D ALT 214 H D Alkaline Phosphatase 143 H C-Reactive Protein 2.6 H D Total Protein 5.5 L Albumin 2.7 L Total Amylase 61 Lipase 163 Tumor Marker AFP 3.2 CA 19-9 Antigen 55433 H Hepatitis A Ab Total Negative Hep Bs Antigen Negative Hep Bs Antibody Reactive Hep B Core Total Ab Negative Hepatitis C Antibody <0.1 Active Medications Generic Name Dose Route Start Last Admin Trade Name Freq PRN Reason Stop Dose Admin Ampicillin Sodium/Sulbactam Sodium 100 mls @ 200 mls/hr 10/10/16 02:00 09:26 Unasyn 1.5 Gm (Pre-Docked) IVPB 200 mls/hr Q8H-IV ASIYA Administration Metronidazole 100 mls @ 100 mls/hr 10/10/16 02:00 10/11/16 09:27 Flagyl 500mg Premixed Ivpb - IVPB 100 mls/hr Q8H-IV ASIYA Administration Potassium Chloride/Dextrose/Sod Cl 1,000 mls @ 75 mls/hr 10/11/16 06:15 06:57 D5-1/2ns+20 Meq Kcl - IV 75 mls/hr ASDIR ASIYA Administration Morphine Sulfate 2 mg 10/09/16 20:35 10/10/16 09:26 Morphine Injection - IVPUSH 2 mg Q4H PRN Administration MODERATE PAIN ASSESSMENT/PLAN: Patient is a 36 year old male female with no PMHx who presented for RUQ abdominal pain associated with vomiting and jaundice. Patient was found to have acute cholecystitis and transaminitis. Patient admitted to med//surg for further monitoring and management. Acute calcalous Cholecystitis -CBD 8.5 mm -ast, alt, t bili trending down -s/p MRCP ERCP -liver enzymes and bili trending down. -lap heydi 1 pm -GI and Lawrence consult appreciated -IVF -Unasyn and flagyul -Morphine 2mg IVP PRN for pain -NPO Transaminitis -due to cholecystitis/choledochlithiasis -enzymes trending down AST/ALT 200/338 -AM CMP Hyperbilirubinemia -t bili, d bili : 3.2, 2.4 trending down -trend bilirubin Acute Kidney Injury -secondary to volume depletion -IV Normal Saline @100mls/hr -resolved Cystic hepatic lesion -Gi consult: likely fatty defect, MRI ordered FEN d51/2 ns @75mls/hr lytes stable DVT GI PPX: SCD NPO Dispo: Med/Surg Problem List - Problems (1) Abdominal pain Code(s): R10.9 - UNSPECIFIED ABDOMINAL PAIN (2) Gallstones with biliary obstruction Code(s): K80.21 - CALCULUS OF GALLBLADDER W/O CHOLECYSTITIS WITH OBSTRUCTION (3) Liver mass, right lobe Code(s): R16.0 - HEPATOMEGALY, NOT ELSEWHERE CLASSIFIED (4) Scleral icterus Code(s): R17 - UNSPECIFIED JAUNDICE Visit type - Emergency Visit Emergency Visit: Yes ED Registration Date: 10/09/16 Care time: The patient presented to the Emergency Department on the above date and was hospitalized for further evaluation of their emergent condition. - New Patient This patient is new to me today: No - Critical Care Critical Care patient: No - Discharge Referral Referred to [facility] Med [facility] No <Alirio Ibarra - Last Filed: 10/11/16 14:44> Physical Exam: ATTENDING PHYSICIAN STATEMENT I saw and evaluated the patient. I reviewed the resident's note and discussed the case with the resident. I agree with the resident's findings and plan as documented. SUBJECTIVE: seen and evaluated at the bedside OBJECTIVE: resting comfortably; mild abd tenderness on exam ASSESSMENT AND PLAN: 36 year old woman admitted for acute choledocalithiasis with transaminitis and hyperbilirubinemia -GI consult greatly appreciated -s/p ERCP with removal of largeCBD stone -for lap heydi today
[2016-10-11] MEDS ORDERED: MIDAZOLAM HCL 2 MG/2 ML SINGLE DOSE VIAL ONE (13:03)
[2016-10-11] MEDS ORDERED: INDOCYANINE GREEN 25 MG/10 ML VIAL IVPUSH ONE (13:04)
[2016-10-11] MEDS ORDERED: BUPIVACAINE HCL/PF 0.5% (5MG/ML) 10 ML VIAL ONE (13:06)
[2016-10-11] MEDS ORDERED: PROPOFOL 20 ML ONE (13:17)
[2016-10-11] MEDS ORDERED: ROCURONIUM BROMIDE 50 MG/5 ML VIAL ONE (13:17)
[2016-10-11] MEDS ORDERED: ceFAZolin SODIUM 1 GM VIAL IVPB ONE (13:21)
[2016-10-11] MEDS ORDERED: ceFAZolin SODIUM 1 GM VIAL ONE (13:33)
[2016-10-11] MEDS ORDERED: DEXAMETHASONE SOD PHOSPHATE 4 MG/1 ML VIAL ONE (14:41)
[2016-10-11] MEDS ORDERED: BUPIVACAINE HCL/PF 0.5% (5MG/ML) 10 ML VIAL IJ ONE (14:49)
[2016-10-11] MEDS ORDERED: OXYCODONE/APAP 5/325MG COMBO TABLET PO PRN ×2 (14:55→15:00)
[2016-10-11] MEDS ORDERED: NEOSTIGMINE METHYLSULFATE 0.5 MG/ML - 10 ML MDV ONE (14:59)
[2016-10-11] MEDS ORDERED: MEPERIDINE HCL CARPU-JECT 25 MG/1 ML DISP.SYRIN ONE (15:10)
[2016-10-11] MEDS ORDERED: ONDANSETRON 4 MG/2 ML VIAL IVPUSH PRN ×2 (15:19→16:13)
--- NOTE | 2016-10-11 15:48 | PN ---
GI Progress Note Subjective: Patient seen in PACU. Awake but medicated given pain s/p Lap Tracy - Objective Vital Signs: Vital Signs Temperature 98.1 F 10/11/16 09:25 Pulse Rate 87 10/11/16 09:25 Respiratory Rate 18 10/11/16 09:25 Blood Pressure 128/78 10/11/16 09:25 O2 Sat by Pulse Oximetry (%) 100 10/11/16 09:25 Constitutional: Calm Eyes: Yes: Sclera Icterus Cardiovascular: Yes: Regular Rate and Rhythm Respiratory: Yes: Diminished (at bases, poor inspiratory effort) Gastrointestinal Inspection: Yes: Scars (trochar scars that have been glued). No: Distention ...Auscultate: Yes: Normoactive Bowel Sounds ...Palpate: Yes: Hepatomegaly, Tenderness (at terochar) Edema: No (No LE edema) Neurological: Yes: Alert Labs: CBC, BMP 10/11/16 06:20 10/11/16 06:20 INR, PTT INR 0.96 (0.82-1.09) 10/10/16 06:15 Problem List - Problems (1) Gallstones with biliary obstruction Assessment/Plan: S/P Lap Tracy Monitor LFTs CA 19-9 elevated however not specific in the setting of significant biliary obstruction. Would repeat when acute biliary issues have resolved Post op care per surgery Code(s): K80.21 - CALCULUS OF GALLBLADDER W/O CHOLECYSTITIS WITH OBSTRUCTION
--- NOTE | 2016-10-11 15:54 | OP ---
Operative Note - Note: Operative Date: 10/11/16 Pre-Operative Diagnosis: galss stone, acute cholecystitis, Operation: laparascopic cholecystectomy Post-Operative Diagnosis: Same as Pre-op Surgeon: Gerson Patterson Bow Tacker: Zoey Foy Anesthesiologist/ROADMASTER: Rasheeda Silva MD Anesthesia: General Specimens Removed: yariel Estimated Blood Loss (mls): 20 Fluid Volume Replaced (mls): 1,500 Operative Report Dictated: Yes
--- NOTE | 2016-10-11 15:56 | SURG ---
Surgery Refractory Grinder Operator Note Refractory Grinder Operator: Zoey Foy PA-C Date of Service: 10/11/16 Diagnosis: cholelithiasis, acute cholecystitis Procedure: laparoscopic cholecystectomy I was present for the entirety of the operative procedure. For further detail, please refer to operative report. Visit type - Case Type Case Type: ED Admission - Emergency Emergency Visit: Yes ED Registration Date: 10/09/16 Care time: The patient presented to the Emergency Department on the above date and was hospitalized for further evaluation of their emergent condition. - New patient This patient is new to me today: Yes Date on this admission: 10/11/16 - Critical Care Critical Care patient: No
[2016-10-11] MEDS ORDERED: oxyCODONE HCL 5 MG TABLET PO PRN (15:59)
[2016-10-11] MEDS ORDERED: MEPERIDINE HCL CARPU-JECT 25 MG/1 ML DISP.SYRIN IVPUSH ONE (16:05)
[2016-10-11] MEDS: D5-1/2NS+20 MEQ KCL - 1,000 ML IV SCH (16:45)
[2016-10-11] MEDS: morphine CARPU-JECT 4 MG/1 ML DISP.SYRIN IVPUSH PRN ×2 (17:00→22:52)
[2016-10-11] MEDS ORDERED: AMPICILLIN NA/SULBACTAM NA 100 ML IVPB SCH (18:00)
[2016-10-11] MEDS ORDERED: METRONIDAZOLE 500 MG PREMIXED 100 ML IVPB SCH (18:00)
--- NOTE | 2016-10-11 21:21 | OP ---
DATE OF OPERATION: 10/11/2016 PREOPERATIVE DIAGNOSIS: Choledocholithiasis and cholecystitis. POSTOPERATIVE DIAGNOSIS: Choledocholithiasis and cholecystitis. PROCEDURE: Laparoscopic cholecystectomy. SURGEON: Matthew Patterson MD PHARMACY CARE COORDINATOR: BAKARI De Dios ESTIMATED BLOOD LOSS: Approximately 100 mL. The patient was brought to the operating room after confirming name, date of , and medical record number. She was placed in supine position. SCDs for DVT prophylaxis. She then was induced and intubated by the anesthesiologist. She was then prepped and draped in the usual sterile fashion. A time-out was then performed. An infraumbilical incision was made and I bluntly dissected down to her fascia. I cauterized the fascia. I then lifted her abdominal wall anteriorly. I then continued to go through the fascia with electrocautery and then once I got to the peritoneum, I went through it with a Robyn clamp. I then placed my finger inside the abdomen and performed a finger sweep and there were no adhesions. I then insufflated the abdomen to a pressure of 15 mmHg and then placed a 5-mm trocar in the right krystin-abdomen x2 and then another in the subxiphoid region. The gallbladder was then retracted towards the right shoulder and the patient was placed in reverse Trendelenburg position. Using a combination of hook electrocautery and blunt dissection, I carefully dissected out the cystic duct and artery. This was quite tedious as there was a lot of fibrotic and dense attachments that did not give very easily. Furthermore, the cystic duct was found to be markedly dilated, most likely from chronic choledocholithiasis and therefore extra time was spent carefully dissecting out the duct and actually underneath the gallbladder to make sure that there were no structures running into the liver bed. Once we confirmed that the cystic duct was indeed the duct, as it went directly into the gallbladder and that it was not a tented common bile duct, I attempted to place a 5-mm clip on it. This did not fit and therefore I upgraded the subxiphoid 5-mm trocar to a 12-mm trocar. I then tried to place a 10-mm clip and this did not go all the way around and I just placed 10-mm metal clips on the cystic artery and then cut using scissors. I then took a blue load Endo LIZBETH stapler and this was placed on the cystic duct and then I fired it, thus dividing it. I then identified a posterior branch of the cystic artery and this was taken with 10-mm clips after confirming that it did not return to the liver bed. I then used hook electrocautery to take the gallbladder off of the liver bed and then it was placed in a specimen retrieval bag and sent off the field for permanent examination. I then removed the subxiphoid 12-mm trocar and then closed it laparoscopically with an 0 Vicryl interrupted suture with a Nazario-Marcos. I then ensured adequate hemostasis and aspirated out any blood and then at this point I desufflated the abdomen and then tied down on the subxiphoid stitch. I then closed the infraumbilical fascia with a [id number] 0 Vicryl suture x2 and I ensured that no omentum was caught in this incision line. I then reapproximated the skin and subcutaneous tissues with 4-0 Monocryl. All counts were correct. MATTHEW PATTERSON M.D. NALLELY/[id number]
[2016-10-12] MEDS: METRONIDAZOLE 500 MG PREMIXED 100 ML IVPB SCH ×2 (01:50→09:11)
[2016-10-12] MEDS: AMPICILLIN NA/SULBACTAM NA 100 ML IVPB SCH ×2 (01:50→10:50)
[2016-10-12] MEDS: D5-1/2NS+20 MEQ KCL - 1,000 ML IV SCH (06:28)
[2016-10-12] MEDS: oxyCODONE HCL 5 MG TABLET PO PRN ×2 (06:47→11:06)
--- NOTE | 2016-10-12 07:18 | PN ---
Progress Note (short form) - Note Progress Note: POD #1 s/p Lap heydi No acute events since surgery per RN notes. Patient ambulating back from bathroom. States she feels much better. C/o incisional tenderness. Pain managed well via prn meds. Tolerating PO liquids. Denies n/v/f/c, CP, SOB. Last Vital Signs Temp Pulse Resp BP Pulse Ox 98.8 F 75 16 122/79 96 10/12/16 06:36 10/12/16 06:36 10/12/16 06:36 10/12/16 06:36 10/11/16 21:00 PE General: alert. nad Pulm: cta b/l anteriorly Cor: rrr Abd: all surgical ports intact. No hematoma Le: SCDs b/l. nt. Problem List - Problems (1) S/P laparoscopic cholecystectomy Assessment/Plan: POD #1 Can advance her to regular diet If tolerates, can be dc'd home today. Have patient f/u w/ Dr. Patterson in the office in 7-14 days No further surgical intervention. On behalf of Dr. Patterson, thank you for the opportunity to participate in your patient's care. Code(s): Z90.49 - ACQUIRED ABSENCE OF OTHER SPECIFIED PARTS OF DIGESTIVE TRACT
[2016-10-12 07:42] LABS: MCH 29.4 pg (25.7-33.7); MCHC 34.5 g/dl (32.0-36.0); MEAN CELL VOLUME 85.1 fl (80-96); MEAN PLT VOLUME 8.5 fl (7.5-11.1); PLATELET COUNT 122 K/MM3 (134-434); RDW 13.5 % (11.6-15.6); WHITE BLOOD COUNT 5.9 K/mm3 (4.0-10.0)
--- NOTE | 2016-10-12 07:53 | PN ---
Physical Exam: SUBJECTIVE: Patient seen and examined OBJECTIVE: Vital Signs Period Temp Pulse Resp BP Sys/Dominguez Pulse Ox Last 24 Hr 98.1 F-98.8 F 67-98 16-20 121-145/71-90 96-100 GENERAL: The patient is awake, alert, and fully oriented, in no acute distress. HEAD: Normal with no signs of trauma. EYES: PERRL, extraocular movements intact, sclera anicteric, conjunctiva clear. No ptosis. ENT: Ears normal, nares patent, oropharynx clear without exudates, moist mucous membranes. NECK: Trachea midline, full range of motion, supple. LUNGS: Breath sounds equal, clear to auscultation bilaterally, no wheezes, no crackles, no accessory muscle use. HEART: Regular rate and rhythm, S1, S2 without murmur, rub or gallop. ABDOMEN: Soft, nontender, nondistended, normoactive bowel sounds, no guarding, no rebound, no hepatosplenomegaly, no masses. EXTREMITIES: 2+ pulses, warm, well-perfused, no edema. NEUROLOGICAL: Cranial nerves II through XII grossly intact. Normal speech, gait not observed. PSYCH: Normal mood, normal affect. SKIN: Warm, dry, normal turgor, no rashes or lesions noted Laboratory Results - last 24 hr 10/10/16 10/11/16 10/11/16 06:15 06:20 06:20 WBC 3.3 L D RBC 3.65 D Hgb 10.7 D Hct 31.0 L D MCV 84.8 MCHC 34.5 RDW 13.7 Plt Count 93 L D MPV 8.4 Neutrophils % 71.2 Lymphocytes % 20.4 D Monocytes % 5.9 Eosinophils % 1.9 D Basophils % 0.6 Sodium 142 Potassium 3.7 Chloride 106 Carbon Dioxide 26 Anion Gap 10 BUN 5 L D Creatinine 0.7 D Creat Clearance w eGFR > 60 Random Glucose 82 Calcium 8.3 L Phosphorus 2.4 L Magnesium 1.7 L Total Bilirubin 3.2 H D Direct Bilirubin 2.4 H D AST 92 H D ALT 214 H D Alkaline Phosphatase 143 H C-Reactive Protein 2.6 H D Total Protein 5.5 L Albumin 2.7 L Total Amylase 61 Lipase 163 Tumor Marker AFP 3.2 CA 19-9 Antigen 69231 H IRASEMA Screen Negative Active Medications Generic Name Dose Route Start Last Admin Trade Name Freq PRN Reason Stop Dose Admin Metronidazole 100 mls @ 100 mls/hr 10/11/16 18:00 10/12/16 01:50 Flagyl 500mg Premixed Ivpb - IVPB 100 mls/hr Q8H-IV ASIYA Administration Potassium Chloride/Dextrose/Sod Cl 1,000 mls @ 75 mls/hr 10/11/16 16:13 06:28 D5-1/2ns+20 Meq Kcl - IV 75 mls/hr ASDIR ASIYA Administration Ampicillin Sodium/Sulbactam Sodium 100 mls @ 200 mls/hr 10/11/16 18:00 01:50 Unasyn 1.5 Gm (Pre-Docked) IVPB 200 mls/hr Q8H-IV ASIYA Administration Morphine Sulfate 4 mg 10/11/16 15:57 10/11/16 22:52 Morphine Injection - IVPUSH 4 mg Q6H PRN Administration PAIN LEVEL 6-10 Oxycodone HCl 5 mg 10/11/16 15:59 Roxicodone - PO Q4H PRN PAIN LEVEL 1-5 Oxycodone HCl 10 mg 10/11/16 16:00 10/12/16 06:47 Roxicodone - PO 10 mg Q6H PRN Administration PAIN LEVEL 6-10 ASSESSMENT/PLAN: Problem List - Problems (1) Abdominal pain Code(s): R10.9 - UNSPECIFIED ABDOMINAL PAIN (2) Gallstones with biliary obstruction Code(s): K80.21 - CALCULUS OF GALLBLADDER W/O CHOLECYSTITIS WITH OBSTRUCTION (3) Liver mass, right lobe Code(s): R16.0 - HEPATOMEGALY, NOT ELSEWHERE CLASSIFIED (4) Scleral icterus Code(s): R17 - UNSPECIFIED JAUNDICE
--- NOTE | 2016-10-12 07:55 | DS ---
Physical Exam: SUBJECTIVE: Patient seen and examined patient resting in bed NAD. S/p uncomplicated Lap heydi POD 1. No drains. Afebrile and hemodynamically stable. no acute events overnight. Tolerating regular diet, ambulating to bathroom, pain well controlled with PO meds. No BM , no flatus yet. labs improving. Denies n/v, diarrhea, f/c, h/a, chest pain or dizziness. OBJECTIVE: Vital Signs Period Temp Pulse Resp BP Sys/Dominguez Pulse Ox Last 24 Hr 98.1 F-98.8 F 67-98 16-20 121-145/71-90 96-100 PHYSICAL EXAM GENERAL: The patient is awake, alert, and fully oriented, in no acute distress. HEAD: Normal with no signs of trauma. EYES: PERRL, extraocular movements intact, sclera anicteric, conjunctiva clear. ENT: moist mucous membranes. NECK: supple. LUNGS: Breath sounds equal, clear to auscultation bilaterally HEART: Regular rate and rhythm, S1, S2 ABDOMEN: mildly distended, soft, mildy nontender, decreased bowel sounds, surgical incisions clean, nonerytheematous, nondraining, clean dressings. . EXTREMITIES: 2+ pulses, warm, well-perfused, no edema. NEUROLOGICAL: Cranial nerves II through XII grossly intact. Normal speech, gait not observed. PSYCH: Normal mood, normal affect. SKIN: Warm, dry. +sublingual jaundice LABS Laboratory Results - last 24 hr 10/10/16 10/11/16 10/11/16 06:15 06:20 06:20 WBC 3.3 L D RBC 3.65 D Hgb 10.7 D Hct 31.0 L D MCV 84.8 MCHC 34.5 RDW 13.7 Plt Count 93 L D MPV 8.4 Neutrophils % 71.2 Lymphocytes % 20.4 D Monocytes % 5.9 Eosinophils % 1.9 D Basophils % 0.6 Sodium 142 Potassium 3.7 Chloride 106 Carbon Dioxide 26 Anion Gap 10 BUN 5 L D Creatinine 0.7 D Creat Clearance w eGFR > 60 Random Glucose 82 Calcium 8.3 L Phosphorus 2.4 L Magnesium 1.7 L Total Bilirubin 3.2 H D Direct Bilirubin 2.4 H D AST 92 H D ALT 214 H D Alkaline Phosphatase 143 H C-Reactive Protein 2.6 H D Total Protein 5.5 L Albumin 2.7 L Total Amylase 61 Lipase 163 Tumor Marker AFP 3.2 CA 19-9 Antigen 89752 H IRASEMA Screen Negative HOSPITAL COURSE: Date of Admission:10/09/16 Patient is a 36 year old female with no PMHx who presents complaining of constant sharp right upper quadrant abdominal pain that initially started four days ago when she was on vacation in [place], [place] and went to a hospital there. She was told she had gallstones and was discharged with pain medications. Patient left her trip early so she can be evaluated here. The pain radiates to the back and is worse when she takes a deep breath in with a severity of 10/10 associated with nonbilious non bloody vomiting. Patient also reports having yellow eyes and dark urine, which began around the same time as the abdominal pain. Otherwise, patient denies fever, chills, diarrhea, chest pain, shortness of breath, palpitations, dizziness, headaches. She was admitted with Acute calcalous Cholecystitis, her CBD was 8.5 mm. she had transaminitis, sublingual jaundice and eleavated bili. She had MRCP and ERCP , extracting large CBD stone. She then had an uneventful lap heydi and was d/cd home on POD 1. abx were given throughout admission. She was also found to have a Cystic hepatic lesion and evaluated by Gi consult whi assessed it to be likely fatty defect and advised outpatient f/u with MRI. Date of Discharge: 10/12/16 Minutes to complete discharge: 30 (na) <Michelle Cuellar - Last Filed: 10/12/16 10:54> Physical Exam: ATTENDING PHYSICIAN STATEMENT I saw and evaluated the patient. I reviewed the resident's note and discussed the case with the resident. I agree with the resident's findings and plan as documented. SUBJECTIVE: seen and evaluated at the bedside OBJECTIVE: resting comfortably; mild abd tenderness on exam ASSESSMENT AND PLAN: 36 year old woman admitted for acute choledocalithiasis with transaminitis and hyperbilirubinemia -GI consult greatly appreciated -s/p ERCP with removal of large CBD stone -s/p lap heydi which patient tolerated well -discussed case with surgery attending and plan is for discharge today with outpatient surgery follow up <Alirio Ibarra - Last Filed: 10/12/16 12:08> Discharge Summary Reason For Visit: GALLSTONES WITH BILIARY OBSTRUCTION Current Active Problems Abdominal pain (Acute) Gallstones with biliary obstruction (Acute) Liver mass, right lobe (Acute) S/P laparoscopic cholecystectomy (Acute) Scleral icterus (Acute) - Home Medications Comprehensive Discharge Medication List: Ambulatory Orders NK [No Known Home Medication] 10/09/16 <Michelle Cuellar - Last Filed: 10/12/16 10:54> Current Active Problems Abdominal pain (Acute) Gallstones with biliary obstruction (Acute) Liver mass, right lobe (Acute) S/P laparoscopic cholecystectomy (Acute) Scleral icterus (Acute) - Home Medications Comprehensive Discharge Medication List: Ambulatory Orders Oxycodone HCl 10 mg PO Q6H PRN #50 tablet MDD 4 tablets 10/12/16 <Alirio Ibarra - Last Filed: 10/12/16 12:08> - Instructions Diet, Activity, Other Instructions: Dr Patterson Discharge Instructions Dear EUGENIE CAR, Post Operative Instructions Physical activity Resume your normal everyday activity as tolerated no heavy lifting or exercise until seen by your surgeon. You may walk unlimited abdiel of and climb stairs. You may resume driving the car when you feel safe and comfortable behind the wheel. Wound care Your surgical incisions were closed with an absorbable suture then covered with dermabond. It will flake off in 7-10 days. You may shower. No need to place bandages over them. Diet There are no dietary restrictions. Eat healthy, high-fiber foods. Drink 6 to 8 glasses of liquid each day. This will assist in keeping your bowels are regular. Pain management You may take Tylenol or acetaminophen or Ibuprofen (for example, Motrin, Advil etc.) Any pain prescription medication ordered should be taken as prescribed for moderate to severe pain. Call Dr. Patterson for any of the following: Severe pain not relieved by medication Fever of 101 or higher Excessive bleeding or drainage on dressing Inability to urinate Call the office for an appointment in 1-2 weeks. Referrals: Gerson Patterson MD [Staff Physician] - 2 Weeks Tom Christianson MD [Staff Physician] - 3 Weeks Disposition: HOME Problem List - Problems (1) Abdominal pain Code(s): R10.9 - UNSPECIFIED ABDOMINAL PAIN (2) Gallstones with biliary obstruction Code(s): K80.21 - CALCULUS OF GALLBLADDER W/O CHOLECYSTITIS WITH OBSTRUCTION (3) Liver mass, right lobe Code(s): R16.0 - HEPATOMEGALY, NOT ELSEWHERE CLASSIFIED (4) Scleral icterus Code(s): R17 - UNSPECIFIED JAUNDICE <Michelle Cuellar - Last Filed: 10/12/16 10:54> This patient is new to me today: No Emergency Visit: Yes ED Registration Date: 10/09/16 Care time: The patient presented to the Emergency Department on the above date and was hospitalized for further evaluation of their emergent condition. Critical Care patient: No - Discharge Referral Referred to [facility] Med P.C.: No <Michelle Cuellar - Last Filed: 10/12/16 10:54>
[2016-10-12 08:10] LABS: ALBUMIN 2.7 g/dl (3.4-5.0); ALK PHOS 129 U/L (45-117); ANION GAP 9 (8-16); BILIRUBIN,TOTAL 1.7 mg/dL (0.2-1.0); CALCIUM 8.1 mg/dL (8.5-10.1); CO2 26 mmol/L (21-32); CREATININE 0.8 mg/dL (0.55-1.02); GLUCOSE,RANDOM 116 mg/dL (74-106); MAGNESIUM 1.9 mg/dL (1.8-2.4); SGOT/AST 69 U/L (15-37); SGPT/ALT 181 U/L (12-78); TOT PROT 5.6 g/dl (6.4-8.2)
[2016-10-12 09:05] VITALS: BP 129/69; PULSE 69; TEMP 98.4
--- NOTE | 2016-10-12 11:19 | PN ---
Progress Note (short form) - Note Progress Note: Anesthesia postop note 36 y/o F s/p GA for ERCP and subsequently GA for laparoscopic cholecystectomy POD#2 and POD#1, aaox3, vss, some incisional and shoulder pain. To be d/alex home later today. No anesthesia complications.
--- NOTE | 2016-10-15 13:49 | PATH ---
Surgical Pathology Report Patient Name: EUGENIE CAR [facility]. Rec. #: [id number] /Age/Gender: 1980 (Age: 36) / F Account: [id number] Location: [facility]/SURG Taken: 10/11/2016 Received: 10/12/2016 Reported: 10/15/2016 Physicians: Gerson Patterson MD Specimen(s) Received GALLBLADDER Clinical History Gallstones with biliary obstruction Final Diagnosis GALLBLADDER, CHOLECYSTECTOMY: ACUTE, CHRONIC, AND NECROTIZING CHOLECYSTITIS WITH CHOLELITHIASIS. BENIGN PERICYSTIC LYMPH NODE PRESENT. Electronically Signed Jeremy Garcia M.D. Gross Description Received in formalin, labeled "gallbladder," is a 9.0 x 3.0 x 3.0 cm. gallbladder with a 0.2 cm. in length portion of cystic duct attached. There is a 0.6 cm in greatest dimension elliott periductal lymph node present. The outer surface is elliott bates and varies from smooth to shaggy. The lumen contains elliott, mucinous bile as well as multiple yellow, irregular to fragmented choleliths ranging from 0.1-0.6 cm in greatest dimension. The mucosa is elliott and focally eroded. The wall of the gallbladder averages 0.2 cm. in thickness. [employer] sections are submitted in 2 cassettes as follows: 1-cystic duct margin and one whole bisected lymph node; 2-financial foundations representative gallbladder. 10/12/201610/12/2016
== END 2016-10-12 11:48 | disposition home or self-care (01) | DRG 418 ==
LOC: JER 15:33 → JERBED 19:23 → J8W 20:34
PROVIDERS: ADMIT Internal Medicine; ATTEND Internal Medicine
PROC: 0FC98ZZ Extirpation of Matter from Common Bile Duct, Via Natural or Artificial Opening Endoscopic (ICD-10-PCS; 2016-10-10)
PROC: BF10YZZ Fluoroscopy of Bile Ducts using Other Contrast (ICD-10-PCS; 2016-10-10)
PROC: 0FT44ZZ Resection of Gallbladder, Percutaneous Endoscopic Approach (ICD-10-PCS; principal; 2016-10-11 13:00)
DX: K80.62 Calculus of gallbladder and bile duct with acute cholecystitis without obstruction (principal); N17.9 Acute kidney failure, unspecified; R16.0 Hepatomegaly, not elsewhere classified; R74.0 Nonspecific elevation of levels of transaminase and lactic acid dehydrogenase [LDH]; E86.9 Volume depletion, unspecified; E80.6 Other disorders of bilirubin metabolism; K76.89 Other specified diseases of liver
CPT/HCPCS: 36415; 74182-TC; 76000-TC; 76705-TC; 80048; 80053; 80076; 81003; 81015; 82105; 82150; 82248; 82728; 83615; 83690; 83735; 84100; 84703; 85025; 85027; 85610; 85730; 86038; 86140; 86301; 86704; 86706; 86708; 86803; 86850; 86900; 86901; 87040; 87340; 88304-TC; 93005; 93010; 94760; 99283-25

== ENCOUNTER 2017-11-25 07:05 | Inpatient (IN) | payer BC, OTHER ==
[2017-11-25] MEDS ORDERED: CITRIC ACID/SODIUM CITRATE 30 ML UNIT-DOSE CUP PO ONE (07:30)
[2017-11-25] MEDS ORDERED: ELECTROLYTE-148 SOLN 1,000 ML IV SCH (07:30)
[2017-11-25 07:45] VITALS: BMI 35.5
[2017-11-25] MEDS ORDERED: OXYTOCIN 20 UNITS in 0.9% NS 20 UNIT/1,000 ML INFUS.BAG IV ONE ×2 (08:27→10:16)
[2017-11-25] MEDS ORDERED: ceFAZolin SODIUM 1 GM VIAL ONE (09:13)
[2017-11-25] MEDS ORDERED: morphine SULFATE/Preservative Free 0.5 MG/ML (1cc Syringe) ONE (09:13)
[2017-11-25] MEDS ORDERED: PHENYLEPHRINE HCL 10 MG/1 ML SINGLE DOSE VIAL ONE ×2 (09:13→09:14)
[2017-11-25] MEDS ORDERED: EPINEPHrine 1:10,000 (P-F SYR) 1 MG/10 ML DISP.SYRIN ONE (09:14)
[2017-11-25] MEDS ORDERED: BUPIVACAINE 0.75% IN DEXTROSE/PF 2ML AMPULE NR ONE (09:17)
--- NOTE | 2017-11-25 09:21 | HP ---
Past Medical History - Admission History of Present Illness: 37 yo @ 39 6/7 wks by LMP consistent with first trimester ultrasound, EDC complicated by: 1. AMA - favorable cell free DNA 2. prior CD - desire repeat and tubal ligation 3. Maternal Obesity, prior with GDM - normal early and regular GCT 4. Hx/o gestational thrombocytopenia prior - most recent plt 143 Patient presents for scheduled repeat delivery. She denies any complaints. She reports movement, denies leakage of fluid, vaginal bleeding or contractions. - Past Medical History Cardiovascular: No: HTN Pulmonary: No: Asthma Gastrointestinal: No: GERD Renal/: Yes: Renal Calculi ...: 3 ...Para: 2 ...Term: 2 ...LMP: 02/20/17 ... 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 History of Recent Travel: No Home Medications - Allergies Allergies/Adverse Reactions: Allergies Allergy/AdvReac Type Severity Reaction Status Date / Time No Known Allergies Allergy Verified 11/25/17 07:33 - Home Medications Home Medications: Ambulatory Orders Vit No.129/Iron/Folic [ One Daily Tablet] 1 tab PO DAILY Family Disease History - Family Disease History Family History: Denies Family Disease History: Diabetes: Father Review of Systems - Review of Systems Constitutional: reports: No Symptoms Eyes: reports: No Symptoms HENT: reports: No Symptoms Neck: reports: No Symptoms Cardiovascular: reports: No Symptoms Respiratory: reports: No Symptoms Gastrointestinal: reports: No Symptoms Genitourinary: reports: No Symptoms Musculoskeletal: reports: No Symptoms Neurological: reports: No Symptoms Endocrine: reports: No Symptoms Hematology/Lymphatic: reports: No Symptoms Psychiatric: reports: No Symptoms Physical Exam - Maternity Vital Signs: Vital Signs Temperature 98.0 F 11/25/17 07:15 Pulse Rate 82 11/25/17 07:15 Respiratory Rate 20 11/25/17 07:15 Blood Pressure 113/74 11/25/17 07:15 O2 Sat by Pulse Oximetry (%) Constitutional: Yes: Well Nourished, No Distress, Calm Cardiovascular: Yes: Regular Rate and Rhythm Lungs: Clear to auscultation - Abdominal Exam/OB Presentation: Vertex Contractions: No Category: I Accelerations: Non-Uniform Decelerations: None - Vaginal Exam/OB Vaginal Bleediing: No - Physical Exam Extremities: Yes: WNL Edema: LLE: Trace, RLE: Trace Psychiatric: Yes: Alert, Oriented Hemorrhage Risk Assessment - Risk Factors Medium Risk Factors: Yes: Prior , uterine surgery,or multiple laparotomies High Risk Factors: Yes: None Risk Score: 1 Risk Level: Medium Risk Assessment/Plan 37 yo @ 39 6/7 wks for repeat CD + BTL 1. Admit to L&D 2. Admission labs reviewed 3. Consents reviewed and signed. Discussed risks including but not limited to infection, bleeding requiring transfusion and damage to surrounding organs such as the bowel or bladder. Discussed risk of injury to . Discussed risk of wound infection and separation. Reviewed risks of BTL including failure, risk of ectopic . All questions answered and written consent obtained 4. ancef keyboard action assembler to OR 5. SCDs for DVT PPX, plan for lovenox PO 6. Desires circumcision for male 7. Will proceed to OR
[2017-11-25] MEDS ORDERED: ONDANSETRON 4 MG/2 ML VIAL IVPUSH PRN (09:30)
[2017-11-25] MEDS: OXYTOCIN 20 UNITS in 0.9% NS 20 UNIT/1,000 ML INFUS.BAG IV SCH ×2 (10:20→11:59)
[2017-11-25] MEDS ORDERED: BENZOCAINE 20% 57 GM BOTTLE TP PRN (10:39)
[2017-11-25] MEDS ORDERED: METHYLERGONOVINE MALEATE 0.2 MG/1 ML AMP IM PRN (10:39)
[2017-11-25] MEDS ORDERED: IBUPROFEN 600 MG TABLET (FP) PO PRN (10:39)
[2017-11-25] MEDS ORDERED: WITCH HAZEL 50% (TUCKS) 40 PAD/JAR PAD TP PRN (10:39)
--- NOTE | 2017-11-25 11:07 | PN ---
Delivery - Delivery Section: Repeat EBL (cc): 600 Delivery, Single - Stages of Labor Placenta: Yes: Expressed - Condition of Infant Gender: Male Weight: 7 lb 15 oz Position: Right, OT - 1 Minute Total Score: 9 5 Minutes Total Score: 9 - Feeding Plan Initial Plan: Exclusive throughout hospitalization Remarks - Remarks Remarks: Surgeon: Cliff Assist: Dante Anesthesia: Duran, spinal Findings: male , ROT position, 9,9 Wt 7 lb 15 oz; 20.5 inches Dictation: [id number]
--- NOTE | 2017-11-25 12:30 | OP ---
DATE OF OPERATION: 11/25/2017 ATTENDING PHYSICIAN: Bean Cobian MD PREOPERATIVE DIAGNOSIS: Intrauterine 39-6 weeks, prior section, desiring permanent sterilization. POSTOPERATIVE DIAGNOSIS: Intrauterine 39-6 weeks, prior section, desiring permanent sterilization. CIRCUIT RECORDER: Harish Howell MD ANESTHESIA: jane Andrews. FINDINGS: Male in ROT position, Apgars 9/9, weight 7 pounds 15 ounces, 20.5 inches. Normal tubes and ovaries bilaterally. INDICATIONS: The patient is a 37-year-old 3, para 2 with a history of prior delivery x2 desiring repeat and permanent sterilization. She was counseled regarding risks, benefits, alternatives, and complications of the procedure including infection, bleeding, damage to surrounding organs, injury to infant, tubal ligation failure, risk of ectopic . She expressed understanding and was brought to the operating room. DESCRIPTION OF PROCEDURE: When anesthesia was found to be adequate, the patient was prepped and draped in the normal sterile fashion and placed in the dorsal supine position with a leftward tilt. Approximately an 11-cm skin incision was made with a knife and carried down to the underlying rectus fascia using the knife. The fascia was nicked in midline and extended laterally using Taylor scissors. Attention was brought to the inferior portion, which was tented up using Flor clamps, dissected off the underlying rectus muscle using the Taylor scissors. Attention was brought to the superior portion where in a similar fashion was tented up using Flor clamps and dissected off the underlying rectus muscle using Taylor scissors. The muscles were in the midline using a knife, and the peritoneum was entered sharply. This incision was extended inferiorly and superiorly using the Taylor scissors. The vesicouterine peritoneum was identified and entered sharply and a bladder flap was created sharply. The hysterotomy was made with a knife and extended laterally using the bandage scissors. The infant's head was brought to the hysterotomy site. It was found in ROT position. The 's head was delivered followed by shoulders and body without difficulty. Cord was clamped and cut. was handed to the waiting NICU staff present for delivery. Cord blood was collected. The placenta was manually extracted. The uterus was clear of all clot and debris. The hysterotomy was closed using 0 Biosyn in running fashion with 2nd layer as imbricated layer. The bladder flap was reapproximated using 0 Biosyn. Attention was brought to the left fallopian tube. It was followed out to the fimbriated end where an approximately 2-cm portion was identified and was suture ligated using 0 plain gut, and an approximately 1.5 cm portion was ligated and sent to Pathology. The ends were cauterized and continuous hemostasis was noted. Attention was brought to the right fallopian tube where in a similar fashion it was followed to its fimbriated end. A 2-cm portion was identified and suture ligated using 0 plain gut. Both pedicles were cauterized and found to be hemostatic. All areas were found to be hemostatic. Copious irrigation was performed. The peritoneum was closed using 2-0 Biosyn in a running fashion. The muscles were reapproximated using 0 Biosyn in an interrupted fashion. The fascia was closed using 0 Vicryl in an interrupted fashion. The subcutaneous fat was closed using 2-0 Vicryl in a running fashion. The skin was re-approximated using 3-0 Vicryl. The patient tolerated the procedure well. Estimated blood loss was 600 mL. The patient was then brought to the recovery room in stable condition. BEAN COBIAN M.D. [id number] MTDD
[2017-11-25] MEDS ORDERED: TUBERCULIN PPD 5 TU/0.1ML SYRINGE (IN PATIENT USE ONLY) ID ONE (13:15)
[2017-11-25] MEDS: IBUPROFEN 800 MG/8 ML IJ IVPB PRN ×2 (15:19→22:12)
[2017-11-26] MEDS: IBUPROFEN 800 MG/8 ML IJ IVPB PRN (06:38)
--- NOTE | 2017-11-26 08:39 | PN ---
Post Progress Note - Subjective Subjective: 37yo P3 now s/p Repeat c/s and BTL no complains, pain well controlled Breast feeding, sitting in a chair +flatus, + voiding, tolarating PO Post Day: 1 Type of Delivery: Repeat C/S (and BTL) Vital Signs: Vital Signs Temperature 98.1 F 11/26/17 07:10 Pulse Rate 79 11/26/17 07:10 Respiratory Rate 20 11/26/17 07:10 Blood Pressure 125/66 11/26/17 07:10 O2 Sat by Pulse Oximetry (%) 99 11/25/17 12:00 Breast Exam: Yes: Soft Uterus: Yes: Fundus Firm Incision: Yes: Dressing dry and intact Abdomen/GI: Yes: Abdomen soft Lochia: Yes: Rubra Lochia, amount: Small Extremities: Yes: Calves non-tender Activity: Ambulating Assessment/Plan 37yo P3 POD # 1 s/p Repeat c/section VSS, afibrile, doing well follow CBC cont. routine care Rh pos no need for RhoGam Interested in baby being circumcised
[2017-11-26 09:13] LABS: BASO % 0.3 % (0-2.0); EOS % 0.6 % (0-4.5); HEMOGLOBIN 9.8 GM/dL (10.7-15.3); LYMPH % 11.2 % (8-40); MCH 31.7 pg (25.7-33.7); MCHC 33.9 g/dl (32.0-36.0); MEAN CELL VOLUME 93.4 fl (80-96); MEAN PLT VOLUME 9.6 fl (7.5-11.1); MONO % 6.6 % (3.8-10.2); NEUT % 81.3 % (42.8-82.8); PLATELET COUNT 93 K/MM3 (134-434); RBC 3.11 M/mm3 (3.60-5.2); WHITE BLOOD COUNT 6.5 K/mm3 (4.0-10.0)
[2017-11-26] MEDS: PRENATAL VITAMINS W/ FOLIC ACID TABLET (FP) PO SCH (09:39)
[2017-11-26] MEDS: ENOXAPARIN NA (PORCINE) 40 MG/0.4 ML DISP.SYRIN SQ SCH (09:39)
[2017-11-26] MEDS ORDERED: BISACODYL 10 MG SUPP.RECT RC PRN (10:39)
--- NOTE | 2017-11-26 12:21 | PN ---
Progress Note, Physician Chief Complaint: day #1 s/p csection - Current Medication List Current Medications: Active Medications Acetaminophen (Tylenol -) 650 mg PO Q4H PRN PRN Reason: PAIN LEVEL 1-5 Benzocaine (Americaine 20% [place] -) 1 spray TP PRN PRN PRN Reason: Pain - Topical Bisacodyl (Dulcolax Suppository -) 10 mg RC PRN PRN PRN Reason: CONSTIPATION Diphenhydramine HCl (Benadryl Injection -) 25 mg IVPUSH Q4H PRN PRN Reason: Pruritis Enoxaparin Sodium (Lovenox -) 40 mg SQ DAILY [facility] Last Admin: 11/26/17 09:39 Dose: 40 mg Oxytocin/Sodium Chloride (Normal Saline+20 Units Oxytocin -) 20 unit in 1,000 mls @ 125 mls/hr IV ASDIR [facility] Last Admin: 11/25/17 11:59 Dose: 125 mls/hr Ibuprofen (Motrin -) 600 mg PO Q4H PRN PRN Reason: PAIN LEVEL 1-5 Ibuprofen (Motrin -) 600 mg PO Q4H PRN PRN Reason: PAIN LEVEL 1 - 3 Ibuprofen (Caldolor Injection -) 800 mg IVPB Q8H PRN PRN Reason: PAIN Last Admin: 11/26/17 06:38 Dose: 800 mg Methylergonovine Maleate (Methergine Injection -) 0.2 mg IM Q4H PRN PRN Reason: Excessive Bleeding (L&D) Ondansetron HCl (Zofran Injection) 4 mg IVPUSH Q4H PRN PRN Reason: NAUSEA Oxycodone HCl (Roxicodone -) 5 mg PO Q4H PRN PRN Reason: PAIN LEVEL 4 - 6 Multivit/Folic Acid/Iron ( Vitamins (Sjr) -) 1 tab PO DAILY [facility] Last Admin: 11/26/17 09:39 Dose: 1 tab Senna/Docusate Sodium (Pericolace -) 2 tablet PO HS PRN PRN Reason: CONSTIPATION Simethicone (Mylicon -) 80 mg PO Q4H PRN PRN Reason: GAS Witch Vannesa/Glycerin (Tucks Pads -) 1 pad TP PRN PRN PRN Reason: Pain - Topical - Objective Vital Signs: Vital Signs Temperature 98.3 F 11/26/17 11:47 Pulse Rate 85 11/26/17 11:47 Respiratory Rate 20 11/26/17 11:47 Blood Pressure 121/70 11/26/17 11:47 O2 Sat by Pulse Oximetry (%) 99 11/25/17 12:00 Labs: CBC, BMP 11/26/17 08:00 Assessment/Plan doing well today- no SINGLETON, back pain, pain under good control
[2017-11-26] MEDS: SIMETHICONE 80 MG TAB.CHEW (FP) PO PRN ×2 (14:10→18:18)
[2017-11-26] MEDS: ACETAMINOPHEN 325 MG TABLET (FP) PO PRN ×2 (14:10→18:19)
[2017-11-26] MEDS: oxyCODONE HCL 5 MG TABLET PO PRN ×2 (14:11→18:18)
[2017-11-26] MEDS: SENNOSIDES/DOCUSATE COMBO (SENNA PLUS) TABLET (UD) PO PRN (20:36)
[2017-11-27] MEDS: SIMETHICONE 80 MG TAB.CHEW (FP) PO PRN ×3 (01:18→19:51)
[2017-11-27] MEDS: ACETAMINOPHEN 325 MG TABLET (FP) PO PRN ×3 (01:18→19:51)
[2017-11-27] MEDS: oxyCODONE HCL 5 MG TABLET PO PRN ×3 (01:18→19:51)
[2017-11-27] MEDS: ENOXAPARIN NA (PORCINE) 40 MG/0.4 ML DISP.SYRIN SQ SCH (09:19)
[2017-11-27] MEDS: PRENATAL VITAMINS W/ FOLIC ACID TABLET (FP) PO SCH (09:20)
[2017-11-27] MEDS: IBUPROFEN 600 MG TABLET (FP) PO PRN (11:34)
--- NOTE | 2017-11-27 18:31 | PN ---
Post Progress Note - Subjective Subjective: No complaints Post Day: 2 Type of Delivery: Repeat C/S Vital Signs: Vital Signs Temperature 98 F 11/27/17 10:00 Pulse Rate 86 11/27/17 10:00 Respiratory Rate 20 11/27/17 10:00 Blood Pressure 120/78 11/27/17 10:00 O2 Sat by Pulse Oximetry (%) 99 11/25/17 12:00 Breast Exam: Yes: Soft Uterus: Yes: Fundus Firm, Fundus below umbilicus, Non-tender Incision: Yes: Sutures intact Abdomen/GI: Yes: Abdomen soft, Tolerating PO Lochia: Yes: Rubra Lochia, amount: Small Extremities: Yes: Calves non-tender Perineum: Yes: Intact Activity: Ambulating - Labs Labs: CBC WBC 6.5 K/mm3 (4.0-10.0) D 11/26/17 08:00 RBC 3.11 M/mm3 (3.60-5.2) L 11/26/17 08:00 Hgb 9.8 GM/dL (10.7-15.3) L D 11/26/17 08:00 Hct 29.0 % (32.4-45.2) L 11/26/17 08:00 MCV 93.4 fl (80-96) 11/26/17 08:00 MCH 31.7 pg (25.7-33.7) 11/26/17 08:00 MCHC 33.9 g/dl (32.0-36.0) 11/26/17 08:00 RDW 16.0 % (11.6-15.6) H 11/26/17 08:00 Plt Count 93 K/MM3 (134-434) L D 11/26/17 08:00 MPV 9.6 fl (7.5-11.1) 11/26/17 08:00 Neutrophils % 81.3 % (42.8-82.8) 11/26/17 08:00 Lymphocytes % 11.2 % (8-40) D 11/26/17 08:00 Monocytes % 6.6 % (3.8-10.2) D 11/26/17 08:00 Eosinophils % 0.6 % (0-4.5) D 11/26/17 08:00 Basophils % 0.3 % (0-2.0) 11/26/17 08:00 Assessment/Plan 37yo P3 s/p repeat LT C/S, doing well stable, afebrile. care instructions reviewed. Continue routine postop care. Ambulation encouraged.
[2017-11-27] MEDS: SENNOSIDES/DOCUSATE COMBO (SENNA PLUS) TABLET (UD) PO PRN (20:40)
[2017-11-27 22:35] VITALS: TEMP 98.2
[2017-11-28] MEDS: oxyCODONE HCL 5 MG TABLET PO PRN (04:13)
[2017-11-28] MEDS: SIMETHICONE 80 MG TAB.CHEW (FP) PO PRN ×2 (04:13→09:16)
[2017-11-28] MEDS: ACETAMINOPHEN 325 MG TABLET (FP) PO PRN ×2 (04:14→09:16)
--- NOTE | 2017-11-28 07:58 | DS ---
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: Vital Signs Temperature 98.2 F 11/27/17 21:00 Pulse Rate 66 11/27/17 21:00 Respiratory Rate 20 11/27/17 21:00 Blood Pressure 115/75 11/27/17 21:00 O2 Sat by Pulse Oximetry (%) 99 11/25/17 12:00 Constitutional: Yes: Well Nourished, No Distress, Calm Eyes: Yes: WNL, Conjunctiva Clear HENT: Yes: WNL, Atraumatic, Normocephalic Neck: Yes: WNL, Supple, Trachea Midline Cardiovascular: Yes: WNL, Regular Rate and Rhythm Respiratory: Yes: WNL, Regular, CTA Bilaterally Gastrointestinal: Yes: WNL, Normal Bowel Sounds, Soft ...Rectal Exam: Yes: Deferred Renal/: Yes: WNL External Genitalia: Yes: Normal Internal Exam Deferred: Yes ....Post : Yes: Uterus firm, Uterus non-tender Breast(s): Yes: WNL Musculoskeletal: Yes: WNL Extremities: Yes: WNL Edema: No Integumentary: Yes: WNL Wound/Incision: Yes: Clean/Dry, Well Approximated, Sutures Intact, Steri Strips , Open to air Neurological: Yes: WNL, Alert, Oriented ...Motor Strength: WNL Psychiatric: Yes: WNL, Alert, Oriented Labs: CBC, BMP 11/26/17 08:00 Delivery - Delivery Section: Repeat Type of Anesthesia: Spinal Episiotomy/Laceration: None EBL (cc): 600 Delivery, Single - Stages of Labor Date of Delivery: 11/25/17 Time of Delivery: 09:56 Time Placenta Delivered: 09:57 Placenta: Yes: Expressed - Condition of Infant [employer] Principal/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 You may walk unlimited abdiel of and climb stairs. You may resume driving the car when you feel safe and comfortable behind the wheel. No sexual activity as instructed. Wound care If you have a bandage, leave it on, and keep dry for 48-72 hours. After that time discard the outer bandage. If they are tapes on the skin under the out of bandage leave them in place. They will peel off in the next 7 to 10 days. Do Not Peel them off. You may shower the day after surgery. If there are tapes present on the skin, you may shower over them. Diet There are no dietary restrictions. Eat healthy, high-fiber foods. Drink 6 to 8 glasses of liquid each day. This will assist in keeping your bowels are regular. Pain management You may take Tylenol or acetaminophen or Ibuprofen (for example, Motrin, Advil etc.) from my pain prescription medication is ordered should be taken as prescribed for moderate to severe pain. Call MD for any of the following: Severe pain not relieved by medication Fever of 101 or higher Excessive bleeding or drainage on dressing Inability to urinate Referrals: Neda Coronado MD [Staff Physician] - Disposition: HOME - Home Medications Comprehensive Discharge Medication List: Ambulatory Orders Vit No.129/Iron/Folic [ One Daily Tablet] 1 tab PO DAILY
[2017-11-28 08:51] LABS: BASO % 0.8 % (0-2.0); EOS % 1.8 % (0-4.5); HEMATOCRIT 28.1 % (32.4-45.2); HEMOGLOBIN 9.5 GM/dL (10.7-15.3); LYMPH % 20.8 % (8-40); MCH 31.5 pg (25.7-33.7); MCHC 33.8 g/dl (32.0-36.0); MEAN CELL VOLUME 93.2 fl (80-96); MEAN PLT VOLUME 8.8 fl (7.5-11.1); MONO % 6.1 % (3.8-10.2); NEUT % 70.5 % (42.8-82.8); PLATELET COUNT 117 K/MM3 (134-434); RBC 3.01 M/mm3 (3.60-5.2); RDW 16.4 % (11.6-15.6); WHITE BLOOD COUNT 5.1 K/mm3 (4.0-10.0)
[2017-11-28] MEDS: IBUPROFEN 600 MG TABLET (FP) PO PRN (09:16)
[2017-11-28] MEDS: PRENATAL VITAMINS W/ FOLIC ACID TABLET (FP) PO SCH (09:16)
[2017-11-28] MEDS: ENOXAPARIN NA (PORCINE) 40 MG/0.4 ML DISP.SYRIN SQ SCH (09:16)
[2017-11-28 10:29] VITALS: BP 116/58; PULSE 92
--- NOTE | 2017-11-28 14:34 | PATH ---
Surgical Pathology Report Patient Name: EUGENIE CAR [facility]. Rec. 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 PLACENTA, SECTION: 620 g THIRD TRIMESTER PLACENTA WITH TRIVASCULAR UMBILICAL CORD AND UNREMARKABLE PLACENTAL MEMBRANES. B. FALLOPIAN TUBE, LEFT, PARTIAL EXCISION: FULL LUMINAL PORTION OF UNREMARKABLE FALLOPIAN TUBE. C. FALLOPIAN TUBE, RIGHT, PARTIAL EXCISION: FULL LUMINAL PORTION OF UNREMARKABLE FALLOPIAN TUBE. Electronically Signed Edna Lau M.D. Gross Description A. The specimen is received fresh labeled placenta and is a 620 gram, 19 x 17 x 2 cm. placenta with attached membranes and umbilical cord. The attached membranes are elliott translucent and insert marginally. The umbilical cord measures 41 cm. in length and averages 1.4 cm. in diameter. The cord inserts extending, 8 cm. to the nearest margin. No true knots or strictures are identified. Cut surface of the umbilical cord reveals 3 vessels. The surface is bates-blue with minimal fibrin deposition and appropriate caliber vessels. The maternal surface is red-brown with focal defects. Sectioning reveals red-brown, spongy parenchyma. No lesions are identified. Calender Inspector sections are submitted in three cassettes as follows: 1- membrane rolls and umbilical cord; 2-3- full thickness sections of placenta. B. The specimen is received in formalin labeled as "portion of left tube" and consists of a tubular structure consistent with portion of fallopian tube measuring 0.6 cm in length and 0.6 cm diameter. A 0.1 cm lumen is identified. Specimen is bisected and entirely submitted in one cassette. C. The specimen is received in formalin labeled as "portion of right tube" and consists of tubular structure consistent with portion of fallopian tube measuring 1.5 cm in length and 0.6 cm diameter. A 0.1 cm lumen is identified. Specimen is bisected and entirely submitted in one cassette. [email or web address]/27/2017
== END 2017-11-28 12:00 | disposition home or self-care (01) | DRG 765 ==
LOC: JLDR 07:05 → J3W 12:30
PROVIDERS: ADMIT Obstetrics & Gynecology; ATTEND Obstetrics & Gynecology
PROC: 10D00Z1 Extraction of Products of Conception, Low, Open Approach (ICD-10-PCS; principal; 2017-11-25)
PROC: 0UL70ZZ Occlusion of Bilateral Fallopian Tubes, Open Approach (ICD-10-PCS; 2017-11-25)
DX: O34.211 Maternal care for low transverse scar from previous cesarean delivery (principal); O36.0930 Maternal care for other rhesus isoimmunization, third trimester, not applicable or unspecified; O24.425 Gestational diabetes mellitus in childbirth, controlled by oral hypoglycemic drugs; O99.214 Obesity complicating childbirth; E66.9 Obesity, unspecified; Z68.35 Body mass index [BMI] 35.0-35.9, adult; Z3A.39 39 weeks gestation of pregnancy; Z37.0 Single live birth; Z30.2 Encounter for sterilization
CPT/HCPCS: 36415; 85025; 88302-TC; 88307-TC